=== PATIENT | female | born 1940 | race Two or more races ===

== ENCOUNTER 2017-12-30 09:44 | Emergency (ER) | payer OTHER ==
[~2017-12-30] VITALS: Ht 152.4 cm; Wt 49.9 kg
[~2017-12-30 09:44] MED LIST: AMBIEN10 MG; BENAZEPRIL HCL10 MG; DOLOGEN CAPLET1 EACH PO; IRON1TAB4 PO; KETO10TA2 PO; NEURONTIN300 MG; NORVASC5 MG; PERCOCET 5/321 UDTAB PO; SYNTHROID50 MCG; TRAMADOL HCL25 GM; ULTRACET PO; ULTRAM50 MG; ULTRAM50 MG PO; ZANTAC 7575 MG; ZOCOR20 MG
[2017-12-30] MEDS ORDERED: NORFLEX100MG PO (13:36)
== END 2017-12-30 15:03 | disposition home or self-care (01) ==
LOC: ER 09:44
DX: S52.592A Other fractures of lower end of left radius, initial encounter for closed fracture (principal); S20.219A Contusion of unspecified front wall of thorax, initial encounter; W18.09XA Striking against other object with subsequent fall, initial encounter; Y93.89 Activity, other specified; Y92.018 Other place in single-family (private) house as the place of occurrence of the external cause; Y99.8 Other external cause status

== ENCOUNTER 2018-01-02 10:19 | Outpatient (CLI) | payer OTHER ==
[~2018-01-02 10:19] MED LIST changes: +NORFLEX100MG PO
== END 2018-01-02 10:30 | disposition home or self-care (01) ==
LOC: RAD 10:19
DX: Z76.89 Persons encountering health services in other specified circumstances (principal)

== ENCOUNTER → 2018-01-02 11:49 | Outpatient (CLI) | payer OTHER | END | disposition home or self-care (01) | LOC: LAB 11:49 | DX: D64.89 Other specified anemias (principal); E88.89 Other specified metabolic disorders; D68.8 Other specified coagulation defects; N39.0 Urinary tract infection, site not specified; A49.02 Methicillin resistant Staphylococcus aureus infection, unspecified site ==

== ENCOUNTER → 2018-01-02 11:53 | Outpatient (CLI) | payer OTHER | END | disposition home or self-care (01) | LOC: EKG 11:53 | DX: I49.8 Other specified cardiac arrhythmias (principal) ==

== ENCOUNTER → 2018-01-06 | Day surgery (SDC) | payer OTHER | END | disposition home or self-care (01) | LOC: CIR.AMB 07:00 | DX: S52.532A Colles' fracture of left radius, initial encounter for closed fracture (principal) | CPT/HCPCS: 25609; C1776 ==

== ENCOUNTER 2018-01-14 10:40 | Emergency (ER) | payer OTHER ==
[~2018-01-14] VITALS: Ht 152.4 cm; Wt 49.9 kg
[2018-01-14] MEDS ORDERED: NORVASC5 MG PO (10:53)
[2018-01-14] MEDS ORDERED: SYNTHROID50 MCG PO (10:53)
[2018-01-14] MEDS ORDERED: CLONAZEPAM0.5 M1 PO (10:54)
[2018-01-14] MEDS ORDERED: COZAAR100 MG PO (10:54)
[2018-01-14] MEDS ORDERED: ZOLOFT50 MG PO (10:55)
[2018-01-14] MEDS ORDERED: CATAPRES0.1 MG PO (10:56)
== END 2018-01-14 15:34 | disposition home or self-care (01) ==
LOC: ER 10:40
DX: G89.11 Acute pain due to trauma (principal); R07.89 Other chest pain

== ENCOUNTER 2019-01-31 13:51 | Outpatient (CLI) | payer OTHER ==
[~2019-01-31 13:51] MED LIST changes: +CATAPRES0.1 MG PO; +CLONAZEPAM0.5 M1 PO; +COZAAR100 MG PO; +NORVASC5 MG PO; +SYNTHROID50 MCG PO; +ZOLOFT50 MG PO
== END 2019-01-31 13:58 | disposition home or self-care (01) ==
LOC: RAD 13:51
DX: M81.0 Age-related osteoporosis without current pathological fracture (principal); R06.83 Snoring

== ENCOUNTER 2019-03-13 10:03 | Outpatient (CLI) | payer OTHER | END 2019-03-13 10:16 | disposition home or self-care (01) | LOC: MRI 10:03 | DX: M54.6 Pain in thoracic spine (principal) | CPT/HCPCS: 72146 ==

== ENCOUNTER → 2019-03-19 | Outpatient (CLI) | payer OTHER | END | disposition home or self-care (01) | LOC: NUCLEAR 02-14 13:00 | DX: M81.0 Age-related osteoporosis without current pathological fracture (principal) ==

== ENCOUNTER 2019-05-24 11:38 | Outpatient (CLI) | payer OTHER | END 2019-05-24 11:40 | disposition home or self-care (01) | LOC: RAD 11:38 | DX: I11.9 Hypertensive heart disease without heart failure (principal); M13.852 Other specified arthritis, left hip; M12.552 Traumatic arthropathy, left hip ==

== ENCOUNTER 2021-10-12 11:12 | Outpatient (CLI) | payer OTHER | END 2021-10-12 11:19 | disposition home or self-care (01) | LOC: RAD 11:12 | PROVIDERS: ATTEND Internal Medicine | DX: I10 Essential (primary) hypertension (principal); K43.9 Ventral hernia without obstruction or gangrene; E03.8 Other specified hypothyroidism; F03.90 Unspecified dementia, unspecified severity, without behavioral disturbance, psychotic disturbance, mood disturbance, and anxiety ==

== ENCOUNTER 2021-10-13 10:14 | Outpatient (CLI) | payer OTHER | END 2021-10-13 10:25 | disposition home or self-care (01) | LOC: NUCLEAR 10:14 | PROVIDERS: ATTEND Internal Medicine | DX: I10 Essential (primary) hypertension (principal); K43.9 Ventral hernia without obstruction or gangrene; E03.9 Hypothyroidism, unspecified; F03.90 Unspecified dementia, unspecified severity, without behavioral disturbance, psychotic disturbance, mood disturbance, and anxiety ==

== ENCOUNTER 2021-12-15 06:29 | Emergency (ER) | payer OTHER ==
[~2021-12-15] VITALS: Ht 121.9 cm; Wt 54.9 kg
[2021-12-15] MEDS ORDERED: CARVEDILOL ER40 MG (06:39)
[2021-12-15] MEDS ORDERED: SEROQUEL50 MG (06:39)
[2021-12-15] MEDS ORDERED: MEMANTINE HCL10 MG (06:39)
[2021-12-15] MEDS ORDERED: VITAMIN K100 MCG (06:40)
[2021-12-15] MEDS ORDERED: DOXYCYCLINE HY100 M2 PO (09:41)
== END 2021-12-15 10:23 | disposition home or self-care (01) ==
LOC: ER 06:29
DX: S91.155A Open bite of left lesser toe(s) without damage to nail, initial encounter (principal); W64.XXXA Exposure to other animate mechanical forces, initial encounter; Y93.89 Activity, other specified; Y92.098 Other place in other non-institutional residence as the place of occurrence of the external cause; Y99.8 Other external cause status

== ENCOUNTER 2022-02-04 11:31 | Outpatient (CLI) | payer OTHER ==
[~2022-02-04 11:31] MED LIST changes: +CARVEDILOL ER40 MG; +DOXYCYCLINE HY100 M2 PO; +MEMANTINE HCL10 MG; +SEROQUEL50 MG; +VITAMIN K100 MCG
== END 2022-02-04 11:34 | disposition home or self-care (01) ==
LOC: RAD 11:31
PROVIDERS: ATTEND Family Medicine Adult Medicine
DX: M54.2 Cervicalgia (principal)

== ENCOUNTER 2023-01-14 09:02 | Outpatient (CLI) | payer OTHER | END 2023-01-14 09:20 | disposition home or self-care (01) | LOC: TOM 09:02 | PROVIDERS: ATTEND Surgery | DX: K43.0 Incisional hernia with obstruction, without gangrene (principal) ==

== ENCOUNTER 2023-03-25 12:49 | Outpatient (CLI) | payer OTHER ==
[~2023-03-25 12:49] MED LIST changes: +MELATONIN10 MG PO; +SER PO; +VITAMIN B122500 MCG PO; +[UNRECOGNIZED DRUG - OTHER] PO
== END 2023-03-25 12:51 | disposition home or self-care (01) ==
LOC: LAB 12:49
PROVIDERS: ATTEND Surgery
DX: Z11.59 Encounter for screening for other viral diseases (principal); K43.0 Incisional hernia with obstruction, without gangrene

== ENCOUNTER 2023-03-29 05:18 | Day surgery (SDC) | payer OTHER ==
[~2023-03-29] VITALS: Ht 152.4 cm; Wt 57.6 kg
== END 2023-03-29 12:30 | disposition home or self-care (01) ==
LOC: CIR.AMB 05:18
PROVIDERS: ATTEND Surgery
DX: K43.0 Incisional hernia with obstruction, without gangrene (principal); Z20.822 Contact with and (suspected) exposure to COVID-19; Z88.1 Allergy status to other antibiotic agents; Z91.013 Allergy to seafood; I10 Essential (primary) hypertension; E03.9 Hypothyroidism, unspecified

== ENCOUNTER 2023-10-06 14:47 | Emergency (ER) | payer OTHER ==
[~2023-10-06] VITALS: Ht 152.4 cm; Wt 57.6 kg
[2023-10-06] MEDS ORDERED: NORFLEX100MG PO (19:27)
[2023-10-06] MEDS ORDERED: DICLOFENAC SOD100 GM TOP (19:27)
== END 2023-10-06 19:48 ==
LOC: ER 14:47
DX: S39.82XA Other specified injuries of lower back, initial encounter (principal); W18.39XA Other fall on same level, initial encounter; Y93.89 Activity, other specified; Y92.488 Other paved roadways as the place of occurrence of the external cause; Z88.8 Allergy status to other drugs, medicaments and biological substances; I10 Essential (primary) hypertension; E03.9 Hypothyroidism, unspecified; G89.29 Other chronic pain
CPT/HCPCS: 72070; 72100; 96372; 99284; J1100; J2360